=== PATIENT | female | born 1995 | race Caucasian/White ===

== ENCOUNTER 2017-07-01 17:58 | Emergency (ER) | payer OTHER ==
[~2017-07-01] VITALS: Ht 154.9 cm; Wt 48.7 kg
[~2017-07-01 17:58] MED LIST: BCPILLS PO; ESCI10TA17 PO; IBUP-1050 PO
[2017-07-01 18:25] VITALS: BP 97/59; PULSE 123; TEMP 37.1; O2SAT 98; Ht 154.9 cm; Wt 48.7 kg
[2017-07-01] MEDS ORDERED: HYDROCODONE/HOMATROPINE SYRUP 5MG/1.5MG 5ML UDP PO STA (19:38)
[2017-07-01] MEDS ORDERED: ACETAMINOPHEN 500 MG TAB PO STA (19:38)
[2017-07-01] MEDS ORDERED: CEPHALEXIN MONOHYDRATE 250 MG CAP PO STA (19:38)
[2017-07-01] MEDS ORDERED: CEPH500C PO (19:43)
[2017-07-01] MEDS ORDERED: HYCODAN 60ML BOTTLE HOMEPACK PO STA (19:44)
--- NOTE | 2017-07-01 19:44 | EMERGENCY ROOM VISIT NOTE ---
History Report prepared by Aby: Angel Hartman Under the Supervision of: Dr. Chago Celis M.D. First contact with patient: 19:31 Chief Complaint: THROAT PAIN/INJURY Stated Complaint: MULTIPLE CANKER SORES IN MOUTH, SWOLLEN TONSILS, History of Present Illness The patient is a 21 year old female who presents to the Emergency Room with complaints of swollen, painful tonsils beginning yesterday. The patient denies any associated swelling on her hands or feet. She denies having any episodes like this in the past, and notes that she does not have a dog at home. There has not been any diarrhea to this point. She has not been taking any medication for pain, but has been using a numbing balm on her lips. She does not feel that the numbing balm has been alleviating her symptoms. The patient notes that she is regularly around 3 young children who attend daycare. Source of History: patient Onset: 1 day ago. Position: throat Quality: other (swollen) Timing: constant Associated Symptoms: No diarrhea Note: Denies: Swelling on hand or feet, similar episodes in the past, having a dog at home, taking any medication for pain. Review of Systems See HPI for pertinent positives & negatives. A total of 10 systems reviewed and were otherwise negative. Past Medical & Surgical Medical Problems: (1) Abdominal pain (2) Abdominal pain (3) Abdominal pain (4) Abdominal pain, left upper quadrant (5) Anemia (6) Cervicitis (7) Cramping complicating , antepartum (8) Hx of delivery, currently (9) Intrauterine (10) Intrauterine (11) Left upper quadrant pain (12) Left upper quadrant pain (13) Leukocytosis (14) No Known Active Medical Problems (15) Ovarian cyst (16) Pelvic pain (17) Postoperative ileus (18) labor (19) Right lower quadrant abdominal pain (20) Vomiting Surgical Problems: (1) H/O section Family History Cancer Diabetes mellitus Hypertension Social History Smoking Status: Never Smoker Alcohol Use: none Drug Use: none Marital Status: single, in relationship Housing Status: lives with family Occupation Status: employed Current/Historical Medications Scheduled Control Pills ( Control Pills), 1 TAB PO DAILY Cephalexin Monohydrate (Keflex), 1 CAP PO QID Venlafaxine Hcl (Effexor), 75 MG PO DAILY Allergies Coded Allergies: Penicillins (Verified Allergy, Mild, RASH, 05/03/16) Physical Exam Vital Signs Date Time Temp Pulse Resp B/P (MAP) Pulse Ox O2 Delivery O2 Flow Rate FiO2 07/01/17 18:25 37.1 123 18 97/59 98 Room Air Physical Exam GENERAL: Patient is a healthy-appearing well-nourished Female HEAD: Normocephalic atraumatic EYES: Ocular movements intact pupils equal and react to light OROPHARYNX: Multiple mouth ulcers that are also on her tonsils. She has no evidence of Rashard's angina. NECK: Supple no nuchal rigidity CHEST: Good equal expansion LUNGS: Clear and equal to auscultation CARDIAC: Normal S1 and S2 ABDOMEN: Soft nontender no guarding BACK: No CVA tenderness EXTREMITIES: No pain upon palpation normal muscle strength in all groups no clubbing cyanosis or edema NEURO: Patient is following commands and answering questions appropriately. Alert and oriented x3 Cranial Nerves 2-12 grossly intact Medical Decision & Procedures Medications Administered Medications (Trade) Dose Ordered Sig/Jeffrey Route Start Time Stop Time Status Last Admin Dose Admin Cephalexin Monohydrate (Keflex 500MG Home Pack) 1 homepack NOW ONCE PO 07/01/17 19:45 07/01/17 19:46 DC 07/01/17 19:58 1 HOMEPACK Cephalexin Monohydrate (Keflex Cap) 500 mg NOW STAT PO 07/01/17 19:38 07/01/17 19:42 DC 07/01/17 19:57 500 MG Acetaminophen (Tylenol Tab) 1,000 mg NOW STAT PO 07/01/17 19:38 07/01/17 19:42 DC 07/01/17 19:58 1,000 MG Hydrocodone Bit/ Homatropine Methylb (Hycodan Syrup) 5 ml NOW STAT PO 07/01/17 19:38 07/01/17 19:42 DC 07/01/17 19:58 5 ML Hydrocodone Bit/ Homatropine Methylb (Hycodan Elix Homepack 5/1.5MG/ 5ML) 1 homepack UD STAT PO 07/01/17 19:44 07/01/17 19:45 DC 07/01/17 19:58 1 HOMEPACK ED Course 1931: Past medical records reviewed. The patient was evaluated in room C06. A complete history and physical examination was performed. 1937: Ordered Hydrocodone Bit/Homatropine Methylb 5ml, Acetaminophen 1000mg PO, and Cephalexin Monohydrate 500mg PO. 1943: Ordered Hydrocodone Bit/Homatropine Methylb 1 homepack PO 1944: Ordered Cephalexin Monohydrate 1 homepack PO. 2003: Upon reexamination the patient is resting in bed. I discussed results and treatment plan with the patient. She verbalizes agreement and understanding. The patient is ready for discharge. Medical Decision Differential diagnosis: Etiologies such as viral syndrome, otitis, pharyngitis, pneumonia, influenza, meningitis, urinary tract infection, sepsis, bacteremia, as well as others were entertained. This is a 21-year-old female that presents emergency Department with multiple mouth sores. Using shared medical decision-making I suspect that this is actually a coxsackievirus breakout. I offered to do laboratory work for the patient however she refused. She did ask for strep test was found to be negative. The patient was written a prescription for Keflex however I stressed that this would be self-limited and to use ibuprofen and Tylenol. She was also given Hycodan for the pain. Patient will follow-up with her primary care physician. Medication Reconcilliation Current Medication List: was personally reviewed by me Blood Pressure Screening Patient's blood pressure: Normal blood pressure Impression Primary Impression: Herpangina Scribe Attestation The scribe's documentation has been prepared under my direction and personally reviewed by me in its entirety. I confirm that the note above accurately reflects all work, treatment, procedures, and medical decision making performed by me. Departure Information Dispostion Home / Self-Care Prescriptions Cephalexin Monohydrate (Keflex) 500 Mg Cap 1 CAP PO QID for 10 Days, #40 CAP Prov: Chago Celis MD 07/01/17 Referrals Bradly Pepper M.D. (PCP) Forms HOME CARE DOCUMENTATION FORM, IMPORTANT VISIT INFORMATION, WORK / SCHOOL INSTRUCTIONS Patient Instructions My [facility] Additional Instructions Take 1000 mg Tylenol every 6 hours Take Hycodan for breakthrough pain You were found to have an elevated blood pressure today (>120 sytolic or >90 diastolic). Per medicare guidelines, you need to follow up with this blood pressure screening with your Primary Care Physician (PCP). For a new PCP call [phone]. You received narcotic or benzodiazepene medication while in the emergency room today. This is an addictive medication that may cause drowziness as well as constipation. Do not drive, operate heavy machinery, or drink alcohol under the influence of this medication. Culture results are usually available in approx 48 hours You have been examined and treated today on an emergency basis only. This is not a substitute for, or an effort to provide, complete comprehensive medical care. It is impossible to recognize and treat all injuries or illnesses in a single emergency department visit. It is therefore important that you follow up closely with Dr Pepper. Call as soon as possible for an appointment. Thank you for your time and consideration. I look forward to speaking with you again soon. Please don't hesitate to call us if you have any questions.
[2017-07-01] MEDS ORDERED: CEPHALEXIN 500MG HOME PACK 1 EA BTL PO ONE (19:45)
[2017-07-01] MEDS ORDERED: EFF75 PO (20:12)
== END 2017-07-01 20:04 | disposition home or self-care (01) ==
LOC: C.EDB 17:59 → C.EDC 20:04
DX: B08.5 Enteroviral vesicular pharyngitis (principal); J39.2 Other diseases of pharynx; Z80.9 Family history of malignant neoplasm, unspecified; Z83.3 Family history of diabetes mellitus; Z82.49 Family history of ischemic heart disease and other diseases of the circulatory system; Z79.3 Long term (current) use of hormonal contraceptives; Z79.899 Other long term (current) drug therapy; Z88.0 Allergy status to penicillin

== ENCOUNTER 2017-08-28 19:56 | Emergency (ER) | payer OTHER ==
[~2017-08-28] VITALS: Ht 154.9 cm; Wt 50.5 kg
[~2017-08-28 19:56] MED LIST changes: +EFF75 PO; -ESCI10TA17 PO; -IBUP-1050 PO
[2017-08-28 20:11] VITALS: TEMP 36.8; Ht 154.9 cm; Wt 50.5 kg
[2017-08-28] MEDS ORDERED: CLINDAMYCIN HCL 150 MG CAP PO STA ×2 (20:47)
[2017-08-28] MEDS ORDERED: OXYCODONE IR HOME PACK PO STA (20:47)
[2017-08-28] MEDS ORDERED: OXYCODONE HCL IR 5 MG TAB (IMMEDIATE RELEASE) PO STA (20:47)
[2017-08-28] MEDS ORDERED: CLC/300 PO (20:51)
[2017-08-28] MEDS ORDERED: OXYC1TAB3 PO (20:51)
--- NOTE | 2017-08-28 20:52 | EMERGENCY ROOM VISIT NOTE ---
ED Visit Note First contact with patient: 20:13 CHIEF COMPLAINT: "swollen gums, left cheek, immense pain". HISTORY OF PRESENT ILLNESS: This 21-year-old female patient presented to the emergency department via private vehicle with a progressive toothache for past few days. She states that she notes that she broke the tooth in question a few months ago and was sensitive to hot and cold but did not give her any problems. She notes that she has had no fevers or chills but when she woke up this morning the left side of her cheek up to her left eye was swollen. She notes some redness. It is aching, pulsating and episodic in nature. She notes that eating and drinking makes it worse and opening her jaw makes it worse. The patient believes it is coming from left superior first molar/second premolar region. The pain is now steady and severe and radiates to the face. The patient does not a dentist appointment set up but notes that she would like to do so. They rate their pain a 8/10 and the ibuprofen and Tylenol they have been taking has not relieved the pain. She denies any otalgia, pressure behind the ear, vision changes, left eye pain, nausea, vomiting. She notes this is the first time this has happened. The patient denies any discharge from the mouth. REVIEW OF SYSTEMS: A 6 system review of systems was completed with positives and pertinent negatives listed in the HPI. ALLERGIES: Penicillin MEDICATIONS: As noted below PMH: No pertinent SOCIAL HISTORY: Patient lives locally. PHYSICAL EXAM: Vitals are noted on the nurse's note and reviewed by myself. Vital signs stable. Temperature 36.8C orally. GENERAL: 21-year-old female, in no acute distress, nondiaphoretic, well-developed well-nourished. Mouth: The left superior first molar/second premolar tooth is very carious and the gum is swollen and tender around it, without any discharge or signs of an abscess. There is minimal swelling on the external gum region just superior to this tooth. The remainder of the pharynx and tonsils are without erythema, edema, or exudate. The airway is patent. Minimal left-sided facial swelling without evidence of periorbital/orbital involvement. There is minimal just below the left eye swelling but only minimal tenderness there. No cervical or submandibular lymphadenopathy. The patient appears uncomfortable and in pain. The patient has overall fair dental hygiene. EARS: External auditory canals clear, tympanic membranes pearly jimenez without erythema or effusion bilaterally. ED COURSE: Patient was seen and evaluated as above. She presents to us today with left-sided facial pain stemming from left superior second premolar/first molar. This tooth appears to be fractured. There is surrounding erythema. No evidence of Rashard angina. I believe that she is stable for outpatient management given her presentation here to day and afebrile state with oral clindamycin, and pain medication. No evidence of orbital or periorbital cellulitis. The airways patent. She was given the first doses of clindamycin here and some for at home given her pharmacy at this time is closed. This antibiotic was chosen secondary to her allergies and she was thoroughly educated upon risk of C. difficile with this medication. There are no red flags in the [place] drug monitoring system. She was given contact information for local dentist. She was informed that if the left-sided facial swelling is to worsen or she develops any new/concerning symptoms she is to return for further evaluation and management. She had questions in spite of discharge, was educated upon management, and was discharged home in good condition. In the evaluation and treatment of this patient, the following differential diagnoses were considered: Periapical Abscess, Osteonecrosis of the Jaw, Dental Fracture, Dental Caries, Rashard's Angina, Vincent's Angina, Facial Cellulitis. Problem List Medical Problems: (1) Abdominal pain Status: Resolved (2) Abdominal pain Status: Resolved (3) Abdominal pain Status: Resolved (4) Abdominal pain, left upper quadrant Status: Resolved (5) Anemia Status: Resolved (6) Cervicitis Status: Resolved (7) Cramping complicating , antepartum Status: Resolved (8) Hx of delivery, currently Status: Resolved (9) Intrauterine Status: Resolved (10) Intrauterine Status: Resolved (11) Left upper quadrant pain Status: Resolved (12) Left upper quadrant pain Status: Resolved (13) Leukocytosis Status: Resolved (14) Ovarian cyst Status: Resolved (15) Pelvic pain Status: Resolved (16) Postoperative ileus Status: Resolved (17) labor Status: Resolved (18) Right lower quadrant abdominal pain Status: Resolved (19) Vomiting Status: Resolved Surgical Problems: (1) H/O section Status: Resolved Current/Historical Medications Scheduled Control Pills ( Control Pills), 1 TAB PO DAILY Clindamycin HCl (Clindamycin HCl), 1 CAP PO TID Venlafaxine Hcl (Effexor), 75 MG PO DAILY Scheduled PRN Oxycodone Ir (Roxicodone Ir), 1-2 TAB PO Q6 PRN for Pain Allergies Coded Allergies: Penicillins (Verified Allergy, Mild, RASH, 08/28/17) Vital Signs Date Time Temp Pulse Resp B/P (MAP) Pulse Ox O2 Delivery O2 Flow Rate FiO2 08/28/17 21:06 89 18 115/63 99 08/28/17 20:11 36.8 114 20 109/70 98 Room Air Medications Administered Medications (Trade) Dose Ordered Sig/Jeffrey Route Start Time Stop Time Status Last Admin Dose Admin Clindamycin HCl (Cleocin Cap) 300 mg NOW STAT PO 08/28/17 20:47 08/28/17 20:48 DC 08/28/17 21:01 300 MG Clindamycin HCl (Cleocin Cap) 300 mg NOW STAT PO 08/28/17 20:47 08/28/17 20:48 DC 08/28/17 21:02 300 MG Oxycodone HCl (Roxicodone Immediate Rel 5MG Home Pack) 1 homepack UD STAT PO 08/28/17 20:47 08/28/17 20:48 DC 08/28/17 21:02 1 HOMEPACK Oxycodone HCl (Roxicodone Immediate Rel Tab) 5 mg NOW STAT PO 08/28/17 20:47 08/28/17 20:48 DC 08/28/17 21:02 5 MG Departure Information Impression Primary Impression: Odontalgia Dispostion Home / Self-Care Condition GOOD Prescriptions Oxycodone Ir (Roxicodone Ir) 5 Mg Tab 1-2 TAB PO Q6 Y for Pain, #18 TAB For Initial Treatment Prov: Claude Santana PA-C 08/28/17 Clindamycin HCl (Clindamycin HCl) 300 Mg Cap 1 CAP PO TID for 9 Days, #27 CAP Prov: Claude Santana PA-C 08/28/17 Referrals Bradly Pepper M.D. (PCP) Patient Instructions My [facility] Additional Instructions You have been treated in the Emergency Department for Dental Pain. You have received pain medicine in the emergency department which impairs your ability to operate a vehicle. It is illegal for you to drive after receiving these medicines. You have been prescribed oxycodone immediate release to be used for pain control. This is a narcotic medication. You cannot drive or consume alcohol while on this medicine. This medicine should only be used for pain that cannot be controlled with [id number] pain medicines. You were prescribed clindamycin every 8 hours. This is an antibiotic. All antibiotics have the potential to cause diarrhea. Stop this medication and contact a medical provider if you were to develop any significant adverse side effects including: wheezing, shortness of breath, passing out, vomiting, or a diffuse rash. Always take antibiotics as directed and COMPLETE the ENTIRE course regardless of the improvement of your symptoms. For pain control, you can use the following oicy-ber-rczcept medicines (if >12 yo): - Regular strength (325mg/tab) Tylenol (acetaminophen) 2 tabs every 4-6 hours as needed. Do not exceed 12 tablets in a 24 hour period. Avoid taking more than 3 grams (3000 mg) of Tylenol per day. This includes any other sources of acetaminophen you may take on a regular basis. - Regular strength (200 mg/tab) Advil (ibuprofen) 1-2 tabs every 4-6 hours as needed. Do not exceed a dose of 3200 mg per day. Refrain from smoking cigarettes or using chewing tobacco until you have been evaluated by your dentist. Keeping beverages lukewarm and consuming soft foods can decrease your pain. Warm compresses over the affected area may offer some relief. You MUST seek evaluation of your dental pain by a dentist following your visit to the Emergency Department. The Emergency Department is not capable of treating dental issues long-term. You should call your dentist as soon as possible to make an appointment for evaluation of your dental pain. Return to the emergency department if you develop the following symptoms despite treatment course outlined above: fever, intractable pain, increased redness, swelling, or purulent discharge. Below is one of the local dentists whom you may call to schedule follow up: Dr. Zac Oshea, DMD [phone] [id number], [address] [place], [place]
[2017-08-28 21:06] VITALS: BP 115/63; PULSE 89; O2SAT 99
== END 2017-08-28 21:07 | disposition home or self-care (01) ==
LOC: C.EDB 19:57 → C.EDD 21:07
DX: K03.81 Cracked tooth (principal); Z88.0 Allergy status to penicillin; Z79.3 Long term (current) use of hormonal contraceptives; Z79.899 Other long term (current) drug therapy